=== PATIENT | female | born 1970 | race Two or more races ===

== ENCOUNTER 2018-08-30 14:54 | Emergency (ER) | payer MEDICAID, OTHER ==
[2018-08-30 15:03] VITALS: BP 180/96
--- NOTE | 2018-08-30 15:26 | EDPHY ---
H & P Time Seen by Provider: 08/30/18 15:06 HPI/ROS: CHIEF COMPLAINT: Skin tag HISTORY OF PRESENT ILLNESS: Patient is a 48-year-old female presents emergency department skin tag on the left side of her neck. Patient states the skin take has been there for some time. However, over the day it has gotten bigger. She has noted that there is piece of hair caught around it. She is minimal discomfort. No neck pain with movement. No swelling. No redness. No fevers or chills. REVIEW OF SYSTEMS: 10 systems were reveiwed and are negative with the exception of the elements mentioned in the history of present illness. Past Medical/Surgical History: Includes Hypertension Smoking Status: Never smoked Physical Exam: Vitals noted General Appearance: Alert and no distress. Well-appearing Head: Pupils equal. Normal. Neck: The patient has multiple small skin tags. Is skin tag on the left side of her neck with the hair wrapped around it. This appears to be strangulating the skin tag. There is no surrounding erythema or warmth. No significant swelling. Respiratory: No respiratory distress. Cardiac: regular rate and rhythm. Extremities: Full range of motion, normal appearing. Skin: No rashes or lesions. Neuro: Alert. Normal mood and affect. Constitutional: Initial Vital Signs Temperature (C) 36.6 C 08/30/18 15:01 Heart Rate 80 08/30/18 15:01 Respiratory Rate 16 08/30/18 15:01 Blood Pressure 180/96 H 08/30/18 15:01 O2 Sat (%) 97 08/30/18 15:01 O2 Delivery Mode Room Air Allergies/Adverse Reactions: No Known Allergies Allergy (Unverified 08/30/18 15:03) Home Medications: Medication Instructions Recorded NK [No Known Home Meds] 08/30/18 Medical Decision Making ED Course/Re-evaluation: In the emergency department I discussed possible etiologies with the patient. I answered all her questions. Patient consented to have her skin tag removed. Procedure: Skin tag removal Indication: Discomfort Area was sterilized. Patient was anesthetized with 1% lidocaine and epinephrine. The patient's skin take was clipped with tissue scissors sterilely. There is no significant bleeding Bacitracin and Band-Aid were placed I discussed the need for close follow-up with the patient's primary care physician. I discussed the possibility of skin malignancy and that she should have a skin check by her physician or biodiesel process control technician. She understands my instructions Differential Diagnosis: The patient appears to have a skin tag that was incarcerated by a piece of hair. Patient states this skin tag is been there for some time. I think this makes malignancy less likely. This does not have an appearance of melanoma. I doubt basal cell carcinoma. It changed size over the past day. I doubt abscess or cellulitis. Departure - Departure Disposition: Home, Routine, Self-Care Clinical Impression: Skin lesion, Skin tag Condition: Good Instructions: Excision of Skin Lesion (DC) Additional Instructions: You need close follow-up with your primary care physician. Call to make an appointment. You should a skin check to ensure this is a simple skin tag. You been given follow-up information for biodiesel process control technician, Dr. Yang. Referrals: Conner Whitley DO [Medical Doctor] - 5-7 days, call for appt. Dayanara Yang MD [Medical Doctor] - 5-7 days, call for appt.
== END 2018-08-30 15:40 | disposition home or self-care (01) ==
PROC: 0HB4XZZ Excision of Neck Skin, External Approach (ICD-10-PCS; principal; 2018-08-30)
DX: L91.8 Other hypertrophic disorders of the skin (principal)